=== PATIENT | male | born 1965 | race Caucasian/White ===

== ENCOUNTER 2019-06-18 17:35 | Emergency (ER) | payer OTHER, SELFPAY ==
--- NOTE | 2019-06-18 17:37 | ED.GENADULT ---
HPI - General Adult General Chief complaint: Ear Stated complaint: Ear Pain Time Seen by Provider: 06/18/19 17:37 Source: patient Mode of arrival: ambulatory Limitations: no limitations History of Present Illness HPI narrative: 53-year-old male patient presents to the [facility] with complaints of right ear pain for the past 2 days. Patient states he is also had some drainage to the right ear. Patient denies any fevers that he is aware of. Patient states he has been taking Advil for her symptoms. Patient states he does have a history of chronic allergy symptoms. Patient states he does take Singulair and he also does a sinus rinse that was prescribed by his doctor. Related Data Home Medications Medication Instructions Recorded Confirmed Singulair 10 mg DAILY 06/18/19 06/18/19 glyburide 1.25 mg PO DAILY 06/18/19 06/18/19 Allergies Allergy/AdvReac Type Severity Reaction Status Date / Time No Known Allergies Allergy Verified 06/18/19 17:47 Review of Systems Review of Systems: Narrative: CONSTITUTIONAL: Denies fever, chills, or sweats. EYES: Denies visual changes, redness, or discharge. ENT: Denies rhinorrhea, congestion, sore throat, positive right otalgia. CARDIOVASCULAR: Denies chest pain, palpitations, or edema. RESPIRATORY: Denies cough or dyspnea. GASTROINTESTINAL: Denies abdominal pain, nausea, vomiting, or diarrhea. GENITOURINARY: Denies dysuria or hematuria. SKIN: Denies rash or itching. MUSCULOSKELETAL: Denies back pain, joint pain, or myalgia. NEUROLOGIC: Denies headache, numbness, or weakness. PSYCHIATRIC: Denies anxiety or depression. PMFSH Social History Social History Gender identity (if verbalized by the patient): Male Comments At the time of my signature I agree with nursing past medical history, surgical, social, and family history. There is no relevant family history pertinent to the presenting complaint. Exam Narrative: Exam Narrative: GENERAL: Well-appearing, well-nourished, and in no acute distress. HEAD: Normocephalic, atraumatic. EYES: PERRLA and EOMI. ENT: Nares clear, no rhinorrhea or epistaxis. Mucous membranes moist. Posterior pharynx with no erythema, tonsillar margin, exudates or lesions present. The right TM does appear to have some erythema and there is swelling and discharge noted to the right canal. NECK: Supple. No lymphadenopathy CHEST: Clear to auscultation. No respiratory distress. HEART: Regular rate and rhythm. No murmur heard. Normal peripheral pulses. ABDOMEN: Soft, nontender, nondistended, normal active bowel sounds. EXTREMITIES: Normal range of motion. No edema. SKIN: Warm, dry, no rash. NEURO: No focal deficits. Alert and oriented x3. Course Vital Signs Vital signs: Vital Signs Temperature 36.2 C L 06/18/19 17:47 Pulse Rate 81 06/18/19 17:47 Respiratory Rate 18 06/18/19 17:47 Blood Pressure 145/97 H 06/18/19 17:47 Pulse Oximetry 96 06/18/19 17:47 Temperature 36.2 C L 06/18/19 17:47 Pulse Rate 81 06/18/19 17:47 Respiratory Rate 18 06/18/19 17:47 Blood Pressure 145/97 H 06/18/19 17:47 Pulse Oximetry 96 06/18/19 17:47 Vital signs reviewed. Medical Decision Making Differential Diagnosis Differential Diagnosis: Differential diagnosis: Otitis media, otitis externa, perforated TM, infection of the outer ear, foreign body or cerumen impaction, ruptured TM, acute mastoiditis, ligament otitis externa, dehydration, pneumonia, sepsis, dental or intraoral infection, TMJ dysfunction Discussed with patient that it does appear that he is got otitis media and otitis externa ear infection. Discussed with him we will discharge him home with an oral antibiotic along with an antibiotic eardrop. Patient verbalized understanding denies any other questions or concerns at this time. Vital Signs Vital Signs: Vital Signs Temperature 36.2 C L 06/18/19 17:47 Pulse Rate 81 06/18/19 17:4
[2019-06-18 17:47] VITALS: BP 145/97; PULSE 81; RESP 18; TEMP 36.2; O2SAT 96
== END 2019-06-18 18:02 | disposition home or self-care (01) ==
PROVIDERS: Emergency Provider Nurse Practitioner Family
DX: H66.91 Otitis media, unspecified, right ear (principal); H60.501 Unspecified acute noninfective otitis externa, right ear; E11.9 Type 2 diabetes mellitus without complications
CPT/HCPCS: 99203; G0463